=== PATIENT | male | born 1945 | race Hispanic/Latino ===

== ENCOUNTER 2020-07-31 08:01 | Day surgery (SDC) | payer MEDICARE, OTHER ==
[2020-07-31] MEDS ORDERED: HYDROmorphone 1 MG/1 ML INJ IV PRN ×2 (09:19)
[2020-07-31] MEDS ORDERED: ONDANSETRON 4 MG/2 ML INJ IV PRN (09:19)
--- NOTE | 2020-07-31 09:20 | Anesthesia Day of Surgery ---
Anesthesia Day of Surgery - Day of Surgery Patient Examined: Yes Patient H&P Reviewed: Yes Patient is NPO: Yes Beta Blockers: Yes
--- NOTE | 2020-07-31 09:22 | Anesthesia Consultation ---
Anesthesia Consult and Med Hx Date of service: 07/31/20 - Airway Anesthetic Teeth Evaluation: Crowns ROM Head & Neck: Inadequate (S/P ACDF) Mental/Hyoid Distance: Adequate Mallampati Class: Class II Intubation Access Assessment: Good - Pre-Operative Health Status ASA Pre-Surgery Classification: ASA3 Proposed Anesthetic Plan: General - Pulmonary Hx Smoking: Yes (STOPPED X 36 YRS AGO) Hx Respiratory Symptoms: No (Leg pain limits activity) COPD: Yes (DAILY/PRN INHALERS) Hx Sleep Apnea: Yes (DX SLEEP APNEA , NO CPAP AT PRESENT) - Cardiovascular System Hx Hypertension: Yes (X 14 YRS) Hx Heart Attack/AMI: No (Pt reports negative NST three months ago) Hx Cardia Arrhythmia: Yes (Bigeminy) - Central Nervous System Hx Neuromuscular Disorder: Yes (Fibromyalgia) 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
[2020-07-31] MEDS ORDERED: LACTATED RINGERS 1,000 ML IV SCH (09:30)
[2020-07-31] MEDS ORDERED: GLYCOPYRROLATE 0.4 MG/2 ML INJ ONE (09:39)
[2020-07-31] MEDS ORDERED: dexAMETHasone 20 MG/5 ML VIAL ONE (09:39)
[2020-07-31] MEDS ORDERED: fentaNYL 100 MCG/2 ML INJ ONE (09:39)
[2020-07-31] MEDS ORDERED: propofoL 200 MG/20 ML VIAL IV ONE (09:39)
[2020-07-31] MEDS ORDERED: PHENYLEPHRINE/NS 1,000 MCG/10 ML SYRINGE (OR USE) IV ONE (09:39)
[2020-07-31] MEDS ORDERED: SUCCINYLCHOLINE CHLORIDE 200 MG/10 ML INJ MDV ONE (09:39)
[2020-07-31] MEDS ORDERED: LIDOCAINE MPF (2%) 20 MG/1 ML VIAL 5 ML ONE (09:39)
[2020-07-31] MEDS ORDERED: ONDANSETRON 4 MG/2 ML INJ ONE (09:39)
[2020-07-31] MEDS ORDERED: NEOMY 40 MG/POLYMYXIN B 200,000 UNITS/ML (GU) AMPULE IR ONE (09:48)
[2020-07-31] MEDS ORDERED: LIDOCAINE (2%) 20 MG/1 ML VIAL 20 ML MDV INFILTRATI ONE (09:48)
[2020-07-31] MEDS ORDERED: VANCOMYCIN/NS 1 GM/250 ML 1 GM/250 ML BAG IV NR ×2 (10:00)
[2020-07-31] MEDS ORDERED: ePHEDrine SULFATE 50 MG/1 ML INJ ONE (10:17)
[2020-07-31] MEDS ORDERED: fentaNYL 250 MCG/5 ML INJ ONE (10:41)
--- NOTE | 2020-07-31 11:30 | Short Stay Summary ---
Short Stay Documentation Date of service: 07/31/20 - History H&P: obtained from office - Allergies and Medications Current Medications: Allergies cefaclor [From [facility]] Allergy (Verified 07/29/20 12:30) Rash sulfamethoxazole [From [facility]] Allergy (Verified 07/29/20 12:30) Swelling , JOINT PAIN trimethoprim [From [facility]] Allergy (Verified 07/29/20 12:30) Swelling , JOINT PAIN Home Medications Medication Instructions Recorded Confirmed Last Taken Type Albuterol Sulfate [Proventil Hfa] 2 puff IH QHS 07/29/20 07/29/20 Unknown History Aspirin [Adult Aspirin] 81 mg PO BID 07/29/20 07/29/20 Unknown History Atorvastatin [Lipitor Tab] 40 mg PO QHS 07/29/20 07/29/20 Unknown History Finasteride [Proscar] 5 mg PO QAM 07/29/20 07/29/20 Unknown History Metoprolol Succinate [Toprol Xl] 25 mg PO QHS 07/29/20 07/29/20 Unknown History Multivit-Min/FA/Lycopen/Lutein 1 each PO DAILY 07/29/20 07/29/20 Unknown History [Centrum Silver Men Tablet] Omeprazole 40 mg PO DAILY 07/29/20 07/29/20 Unknown History Oxybutynin Xl [Ditropan Xl] 5 mg PO QHS 07/29/20 07/29/20 Unknown History Tamsulosin [Flomax] 0.4 mg PO QDAY 07/29/20 07/29/20 Unknown History Umeclidinium Brm/Vilanterol Tr 1 puff IH QHS 07/29/20 07/29/20 Unknown History [Anoro Ellipta 62.5-25 Mcg INH] Active Medications Hydromorphone HCl (Hydromorphone 1 Mg/1 Ml Inj) 0.25 mg IV Q10MIN PRN PRN Reason: Pain, Moderate (4-6) Stop: 07/31/20 22:00 Hydromorphone HCl (Hydromorphone 1 Mg/1 Ml Inj) 0.5 mg IV Q10MIN PRN PRN Reason: Pain , Severe (7-10) Stop: 07/31/20 20:00 Lactated Ringer's (Lactated Ringers) 1,000 mls @ 125 mls/hr IV DIRECT SIRIA Vancomycin HCl (Vancomycin/Ns 1 Gm/250 Ml) 1 gm in 250 mls @ 167.007 mls/hr IV PREOP NR Stop: 07/31/20 12:00 Vancomycin HCl (Vancomycin/Ns 1 Gm/250 Ml) 1 gm in 250 mls @ 166.667 mls/hr IV PREOP NR; Protocol Stop: 07/31/20 12:30 Ondansetron HCl (Ondansetron 4 Mg/2 Ml Inj) 4 mg IV ONCE PRN PRN Reason: Nausea And Vomiting - Brief post op/procedure progress note Date of procedure: 07/31/20 Pre-op diagnosis: non obstructive urinary retention Post-op diagnosis: same Procedure: left interstim placement IPG & lead placement Anesthesia: GETA Surgeon: ROXI VARELA Estimated blood loss: minimal Condition: stable - Hospital course Hospital course: macrobid & norco on chart - Disposition Condition at discharge: Stable Disposition: DC-01 TO HOME OR SELFCARE Short Stay Discharge Plan Follow up with: MADELEINE ORR MD [Primary Care Provider] - 7 Days
--- NOTE | 2020-07-31 13:33 | XRay Report ---
INTRAOPERATIVE FLUOROSCOPY: INTERSTIM PLACEMENT INDICATION: neurogentic bladder and urninary retention. TECHNIQUE: Intraoperative spot images were obtained during the procedure. FINDINGS: InterStim lead tip projects at the left sacral ala. There appear to be catheter fragments at the infe rior right sacral ala. Fluoroscopy Time: 19 seconds. Fluoroscopy Images: 3. Signer Name: Danish Robertson MD Signed: 07/31/2020 1:29 PM Workstation Name: [id number]
--- NOTE | 2020-07-31 14:08 | Post Anesthesia Evaluation ---
- Post Anesthesia Evaluation Patient Participated: Yes Airway Patent: Yes Stable Respiratory Function: Yes Nausea/Vomiting: No Temp > 96.8F: Yes Pain Manageable: Yes Adequeate Hydration: Yes Anesthesia Complications: No Block Receding Appropriately: Not Applicable Patient on Ventilator: No
[2020-07-31 20:01] VITALS: BP 132/68
[2020-08-01] MEDS ORDERED: EPINEPHrine 1 MG/10 ML SYRINGE ONE (12:15)
--- NOTE | 2020-08-01 12:19 | Operative Report ---
PREOPERATIVE DIAGNOSIS: Nonobstructive urinary retention. POSTOPERATIVE DIAGNOSIS: Nonobstructive urinary retention. PROCEDURE: Insertion of InterStim (quadripolar lead and implantable pulse generator), left side. SURGEON: Sotero Tierney MD ANESTHESIA: General. ESTIMATED BLOOD LOSS: Minimal. FLUIDS: Crystalloid. COMPLICATIONS: No complications. INDICATIONS: This patient is a 74-year-old gentleman known to our service with a history of voiding dysfunction with urinary and fecal incontinence. The patient had previous InterStim for fecal incontinence approximately [address] Fausto Barnes. It was subsequently removed. His medical problems had been managed medically, part of it has been related to his spine disease. He has had several urodynamic test done over the years, had shown some muscle weakness as well as trial of medication was unremarkable. We have tried Flomax, Ditropan, Myrbetriq, all with no significant improvement of his symptoms. He underwent recent InterStim test with 50-80% improvement of his symptoms. His voiding diary was incomplete due to his urinary retention. He has been wearing a Hoang catheter. He presents now for intervention. DESCRIPTION OF PROCEDURE: The patient was taken to the operative suite, placed in a supine position. After adequate general anesthesia, he was then rolled into prone position and his lower back was prepped and draped in a sterile fashion. The buttocks were taped to expose the anus. With the aid of C-arm fluoroscopy, the third sacral foramen was cannulated on the left side. He has had previous lower back surgery and there was very difficult to cannulate on the right side and therefore, I avoided that side. He also has the distal end of the quadripolar lead still noted in the pelvis on the right. Temporary wire was placed. Adequate stimulation could be appreciated on the left side. Trocar was placed over the wire followed by the quadripolar lead. Interrogation revealed excellent response to the one in two positions and it was therefore deployed with adequate positioning. Once the trocar was removed, it was tested again with confirmation of adequate response. Next, an incision was made 1 cm below the iliac crest on the left. The tunneler was used to transfer the wire to the subcutaneous pocket. The battery was connected. Impedance testing was performed with excellent response. The battery was placed into the subcutaneous pouch and closed with 2-0 Vicryl in a running fashion and then the skin was closed with 3-0 Vicryl in an interrupted fashion. One stitch was placed over the sacral area. OpSite was placed. The patient tolerated the procedure well. He was extubated and taken to recovery room in stable condition. JOB# [id number] MOHAN/NTS
== END 2020-07-31 08:02 | disposition home or self-care (01) ==
LOC: OR 08:01
PROVIDERS: ATTEND Urology
DX: R33.8 Other retention of urine (principal); M79.7 Fibromyalgia; E78.00 Pure hypercholesterolemia, unspecified; I10 Essential (primary) hypertension; J44.9 Chronic obstructive pulmonary disease, unspecified; G47.30 Sleep apnea, unspecified; N39.41 Urge incontinence; K21.9 Gastro-esophageal reflux disease without esophagitis; Z88.8 Allergy status to other drugs, medicaments and biological substances; Z79.899 Other long term (current) drug therapy; Z87.891 Personal history of nicotine dependence; Z90.49 Acquired absence of other specified parts of digestive tract; Z87.440 Personal history of urinary (tract) infections; Z98.52 Vasectomy status; Z96.652 Presence of left artificial knee joint; Z98.890 Other specified postprocedural states
CPT/HCPCS: 64561; 64590; 72220; 82962; C1767; C1778; C1787; C1894; J0330; J1100; J2370; J2405; J2704; J3010; J3370; J7120; J0171